=== PATIENT | female | born 1970 | race Caucasian/White ===

== ENCOUNTER → 2020-11-26 | Outpatient (CLI) | payer OTHER ==
[~2020-11-26] MED LIST: ACYCLOVIR 800800 MG PO; IBUPROFEN 200200 M1 PO; NOLVADEX20 MG PO; VITAMIN D21250 MCG PO
== END | disposition home or self-care (01) ==
LOC: M.LAB 14:06
PROVIDERS: ATTEND Internal Medicine Gastroenterology
DX: Z01.818 Encounter for other preprocedural examination (principal); Z20.822 Contact with and (suspected) exposure to COVID-19; Z12.11 Encounter for screening for malignant neoplasm of colon; Z88.0 Allergy status to penicillin

== ENCOUNTER → 2020-11-27 | Day surgery (SDC) | payer OTHER ==
--- NOTE | ~2020-11-27 | PROC ---
[address] [address] PROCEDURE REPORT Name: SANTA ZHU Room: [facility]#: [id number] Admission: 11/27/20 Attend Phys: Andrei Winslow DO Discharge: Date of : 70 Report #: [id number] THIS REPORT FOR: cc: Aaron Echols MD, Louis A. MD [facility],Medical Records Staff ~ For GI report, please see the Provation report in Perceptive 7 content. By: [id number] Records Staff [facility] /ISIDRO
[2020-11-27 10:05] LABS: HEMATOCRIT 39.2 % (37.0-47.0); HEMOGLOBIN 13.7 gm/dL (12.0-15.0); MCHC 34.8 g/dL (28.0-37.0); MCV 91.7 fL (80.0-100.0); MPV 6.6 fl. (7.2-11.1); RBC 4.27 mil/uL (4.20-5.00); RDW-CV 12.9 % (10.5-14.5); WBC 6.3 thou/uL (4.0-11.0)
[2020-11-27 10:17] LABS: CALCIUM 8.8 mg/dL (8.5-10.1); POTASSIUM 3.7 mmol/L (3.5-5.1)
--- NOTE | 2020-11-28 10:49 | EKG ---
[place] [address] ELECTROCARDIOGRAM REPORT Name: SANTA ZHU Room: [facility]#: [id number] Admission: 11/27/20 Attend Phys: Andrei Winslow, Discharge: Date of : 70 Date of Service: 11/27/20 1025 Report #: [id number] THIS REPORT FOR: //name// [facility] Test Date: 2020-11-27 Test Time: 10:25:07 Pat Name: SANTA ZHU Department: Room: Gender: F Class [employer]: TDMarianela : 1970 Requested By: Andrei Winslow Order Number: [id number] Reading MD: Osmar Stringer Measurements Intervals [place] Rate: 62 P: 33 NH: 158 QRS: 29 QRSD: 98 T: 22 QT: 410 QTc: 417 Interpretive Statements Sinus rhythm Low voltage, precordial leads RSR' in V1 or V2, right VCD or RVH No previous ECG available for comparison Electronically Signed On 11-28-2020 10:49:26 CDT by Osmar Stringer [email or web address] <ELECTRONICALLY SIGNED> By: Osmar Stringer MD, FAC 11/28/20 1049 1025 1025 Osmar Stringer MD, [facility] /EPI
== END | disposition home or self-care (01) ==
LOC: M.SUR 09:15
PROVIDERS: ATTEND Internal Medicine Gastroenterology
DX: Z12.11 Encounter for screening for malignant neoplasm of colon (principal); Z85.3 Personal history of malignant neoplasm of breast; G43.909 Migraine, unspecified, not intractable, without status migrainosus; F41.9 Anxiety disorder, unspecified; Z98.890 Other specified postprocedural states; Z79.899 Other long term (current) drug therapy; Z90.710 Acquired absence of both cervix and uterus; Z20.822 Contact with and (suspected) exposure to COVID-19; Z88.0 Allergy status to penicillin